=== PATIENT | male | born 1975 | race Caucasian/White ===

== ENCOUNTER 2018-09-27 18:53 | Emergency (ER) | payer SELFPAY ==
[~2018-09-27] VITALS: Ht 182.9 cm; Wt 95.3 kg
[2018-09-27 19:02] VITALS: BP_SYST 146
--- NOTE | 2018-09-27 20:54 | NUR ---
Patient to ER bed 1 to gown for evaluation. Side rails up. Report given to Pat SAUNDERS.
--- NOTE | 2018-09-27 21:10 | NUR ---
ER MD Ordoñez at bedside for medical evaluation.
--- NOTE | 2018-09-27 21:18 | NUR ---
Patient AOx4, ambulatory, presents to ER with complaint of laceration to LFA that occured at 1700. Patient states there is increased swelling to site. No other symptoms or complaints. Last tetanus is unknown.
[2018-09-27] MEDS ORDERED: DIPH-TET-PERTUS Vaccine 0.5 ML VIAL (ADACEL) I.M. ONE (22:00)
[2018-09-27 22:05] VITALS: BP_SYST 142
--- NOTE | 2018-09-27 22:05 | NUR ---
Patient given written and verbal discharge instructions and verbalizes understanding. ER MD discussed with patient the results and treatment provided. Patient in stable condition. ID arm band removed. IV catheter removed intact and dressing applied, no active bleeding. No Rx given. Patient educated on pain management and to follow up with PMD. Pain Scale 0/10. Opportunity for questions provided and answered.
== END 2018-09-27 22:05 | disposition home or self-care (01) ==
LOC: SED 18:53
DX: S51.812A Laceration without foreign body of left forearm, initial encounter (principal); R03.0 Elevated blood-pressure reading, without diagnosis of hypertension; W26.8XXA Contact with other sharp object(s), not elsewhere classified, initial encounter; Y93.89 Activity, other specified; Y92.89 Other specified places as the place of occurrence of the external cause; Y99.8 Other external cause status
CPT/HCPCS: 90715; 99283